=== PATIENT | female | born 1965 | race Asian ===

== ENCOUNTER 2017-03-26 07:36 | Day surgery (SDC) | payer OTHER ==
[~2017-03-26] VITALS: Ht 149.9 cm; Wt 78.5 kg
[2017-03-26] VITALS (8 sets, daily range): BP systolic 125–149; BP diastolic 92–100
[2017-03-26] MEDS ORDERED: LR 1000ml 1,000 ML IVLG SCH ×2 (07:58→09:18)
[2017-03-26] MEDS ORDERED: NAPROXEN250 M1 PO (08:47)
[2017-03-26] MEDS ORDERED: Propofol 10mg/ml 20ml IV ONE (09:00)
[2017-03-26] MEDS ORDERED: LR 1000ml ONE (09:00)
--- NOTE | 2017-03-26 09:01 | Short Stay Surgery H&P ---
History of Present Illness History of Present Illness Chief Complaint Abdominal pains/GERDS. HPI Barb Mckeon is a 51 year old female who was admitted on for GERD/abdominal pains. Patient History Allergies: Coded Allergies: PEACH (Verified Allergy, Severe, 03/26/17) SKIN RASH López (Verified Allergy, Intermediate, 03/26/17) SKIN RASH LATEX (Verified Allergy, Unknown, 03/26/17) DOES NOT KNOW REACTION PAST MEDICAL HISTORY: Past Surgeries: Social History: Medication History Scheduled Naproxen (Naproxen), 150 MG PO NEEDED, (Reported) Review of Systems Cardiovascular: Reports: no symptoms Respiratory: Reports: no symptoms Skeletal: Reports: no symptoms Gastrointestinal: Reports: gastro esophageal reflux disease Genitourinary: Reports: no symptoms Neurologic: Reports: no symptoms Endocrine: Reports: no symptoms Hematologic: Reports: no symptoms Physical Exam Vital Signs Last Vital Signs Date Time Temp Pulse Resp B/P Pulse Ox O2 Delivery O2 Flow Rate FiO2 03/26/17 08:49 97.7 79 20 134/94 97 Room Air Skin: normal HENT: normal Heart: normal Lungs: normal Abdomen: abnormal Extremities: normal Genitourinary: normal Plan Plan of Care Upper GI endoscopy. Preop Interventions None. Summary of Findings See the reports. Final Diagnosis: Attestation Are the patient's medical conditions optimized for surgery? Attestation Response: yes RONALD LITTLE March 26, 2017 09:01
--- NOTE | 2017-03-26 09:01 | Pre-Procedure Note/Attestation ---
Pre-Procedure Note/Attestation Complete Prior to Procedure Planned Procedure: left Procedure Narrative: The endoscopic examination of the upper GI tract. Indications for Procedure Pre-Operative Diagnosis: R/O Peptic ulcer/Gastritis. Attestation I attest that I discussed the nature of the procedure; its benefits; risks and complications; and alternatives (and the risks and benefits of such alternatives ), prior to the procedure, with the patient (or the patient's legal administrative representative). I attest that, if there was a reasonable possibility of needing a blood transfusion, the patient (or the patient's legal administrative representative) was given the [facility] standardized written summary, pursuant to the [place] Blood Safety Act ([place] Health and Safety Code # 1645, as amended). I attest that I re-evaluated the patient just prior to the surgery and that there has been no change in the patient's H&P, except as documented below: ANABEL,SAID March 26, 2017 09:01
--- NOTE | 2017-03-26 09:11 | Endoscopy Procedure Note ---
Endoscopy Procedure Note Indication for Procedure: Abdominal pains/GERDs. Procedures Performed: EGD - Small sliding hiatal hernia and minimal gastritis of the antrum/prepyloric area (antritis) that was biopsied; otherwise normal upper GI endoscopy. Specimen: yes Pt Tolerated Procedure Well: Yes Estimated Blood Loss: none Anesthesiologist: Dr. Marie. Anesthesia: moderate sedation Medication Given: see anesthesia record Implant(s) used?: No 50 yrs or older w/o bx or poly: Not Applicable 10yrs. F/U not recommended: Not Applicable If not recommended, why?: Med reason:<3 yrs.: System Reason:<3 yrs.: RONALD LITTLE March 26, 2017 09:11
--- NOTE | 2017-03-26 09:12 | Discharge Instructions ---
Discharge Instructions Discharge Instructions Follow up with: Visit the doctor after two weeks For Congestive Heart Failure Reminder Report to your physician any weight gain of 5 pounds or more in one week. RONALD LITTLE March 26, 2017 09:12
--- NOTE | 2017-03-26 09:17 | Anethesia Preoperative Eval ---
Anesthesia Pre-op PMH/ROS General Date of Evaluation: March 26, 2017 Time of Evaluation: 09:01 Anesthesiologist: michael ASA Score: ASA 2 Mallampati Score Class I : Soft palate, uvula, fauces, pillars visible Class II: Soft palate, uvula, fauces visible Class III: Soft palate, base of uvula visible Class IV: Only hard plate visible Mallampati Classification: Class II Surgeon: carisa Diagnosis: GERD Surgical Procedure: egd Anesthesia History: none Allergies: Coded Allergies: PEACH (Verified Allergy, Severe, 03/26/17) SKIN RASH López (Verified Allergy, Intermediate, 03/26/17) SKIN RASH LATEX (Verified Allergy, Unknown, 03/26/17) DOES NOT KNOW REACTION Past Medical History Gastrointestinal/Genitourinary: Reports: GERD, other - s/p choley Musculoskeletal/Integumentary: Reports: OA Anesthesia Pre-op Phys. Exam Physician Exam Last Vital Signs Date Time Temp Pulse Resp B/P Pulse Ox O2 Delivery O2 Flow Rate FiO2 03/26/17 08:49 97.7 79 20 134/94 97 Room Air Airway Exam Mallampati Score: Class II Teeth: intact Anesthesia Pre-op A/P Risk Assessment & Plan Plan: propofol Status Change Before Surgery: Jamal Munoz MD March 26, 2017 09:17
--- NOTE | 2017-03-26 09:18 | 48 Hour Post Anesthesia Eval ---
Post Anesthesia Evaluation Date of Evaluation: March 26, 2017 Time of Evaluation: 10:10 Blood Pressure Systolic: 144 0: 95 Pulse Rate: 77 Respiratory Rate: 18 Temperature (Fahrenheit): 97.8 O2 Sat by Pulse Oximetry: 96 Airway: patent Nausea: No Vomiting: No Pain Intensity: 0 Hydration Status: adequate Cardiopulmonary Status: stable Mental Status/LOC: patient returned to baseline Follow-up Care/Observations: mn/a Post-Anesthesia Complications: tolerated well Follow-up care needed: ready to discharge Jamal De Los Santos MD March 26, 2017 09:18
--- NOTE | 2017-03-26 09:18 | Immediate Post-Op Evaluation ---
Immediate Post-Op Evalulation Immediate Post-Op Evalulation Date of Evaluation: March 26, 2017 Time of Evaluation: 09:31 IV Fluids: 300 Blood Pressure Systolic: 125 Blood Pressure Diastolic: 125 Pulse Rate: 92 Respiratory Rate: 20 O2 Sat by Pulse Oximetry: 100 Temperature (Fahrenheit): 97 Pain Score (1-10): 0 Nausea: No Vomiting: No Complications none Patient Status: awake, patent, none Hydration Status: adequate Jamal De Los Santos MD March 26, 2017 09:18
--- NOTE | 2017-03-26 18:46 | Operative Note - Dictated ---
DATE OF OPERATION: 03/26/2017 PROCEDURE: Esophagogastroduodenoscopy with biopsy. REFERRING PHYSICIAN: Lc Tapia M.D. PREOPERATIVE DIAGNOSES: 1. Abdominal pain. 2. History of gastroesophageal reflux. 3. Rule out peptic ulcer disease, gastritis. POSTOPERATIVE DIAGNOSES: 1. Small sliding hiatal hernia. 2. Mild inflammatory process seen in the antrum consistent with antritis. Biopsy was taken from prepyloric area, otherwise normal study. MEDICATION USED: Per Dr. Jamal De Los Santos, anesthesiologist. INSTRUMENT: GIF Olympus upper gastrointestinal video endoscope. DESCRIPTION OF PROCEDURE: The patient after in the arriving endoscopy unit was told about risks and benefits of the procedure, which she accepted and signed the informed consent. She was then put on the left lateral decubitus position. After adequate IV sedation, scope was gently passed through the cricopharyngeal area, was lodged into the upper esophagus, and gradually advanced towards gastroesophageal junction. The entire length of the esophagus looked normal. No evidence of varices, inflammatory process, ulceration, stricture, etc. was found. GE junction also looked normal without any evidence of Bull's mucosa, however there was a small sliding hiatal hernia of no great significance at this point. The scope was then guided into the stomach. Gastric cavity was distended. Gastric fold came into view, which revealed basically normal lining and there was no erythema in the fundus and the body. However, upon reaching towards the antrum and prepyloric area, there was linear erythematous mucosa consistent with mild antritis/gastritis. Couple of biopsies from this area were obtained and subsequently scope was passed through the pylorus. First and second portion of duodenum were found to be completely normal. At this time, a retroflexion maneuver was applied. The area of the fundus of the stomach was examined in a closer fashion, which revealed normal findings. Finally, scope was pulled out. The procedure was terminated. The patient tolerated the procedure well and left the endoscopy room in good condition. Said Iker Farmer DR: Emery JOB#: [id number] CC: ORI
--- NOTE | 2017-03-26 19:01 | Pre-op HX & Phy Repo 2 SIG ---
DATE OF ADMISSION: 03/26/2017 REFERRING PHYSICIAN: This patient was referred by Dr. Lc Tapia. HISTORY OF PRESENT ILLNESS: The applicant is a 51-year-old female, who is being seen prior to undergoing the procedure of upper GI endoscopy for which she has been scheduled to receive for evaluation of her GI symptoms that she had suffered subsequent to work injury. The applicant patient complains of pain over the upper part of the abdomen associated with heartburn. She reports that this pain sometimes become moderate to severe. There has been no relationship with the bowel movements and abdominal pain. The patient has been treated with variety of medications in the past including H2 blockers that she has been taking in the form of ranitidine along with other medications. She also reported that she has gained subsequent amount of weight and mostly 20 pounds. She denies any history of major GI bleeding except occasionally seen minimal amount of blood in the stool, which is not significant possibly related to underlying hemorrhoids. As I mentioned, the applicant was injured at job site and subsequently was started on nonsteroidal anti-inflammatory agents such as ibuprofen and similar compounds, after which she started to experience GI symptoms. 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 She had an encounter with the students and had been injured as she fell down and tripped over and injured her left hand and knees. Subsequently, she was seen by a physician and was treated receiving medical treatment and medications including naproxen that she is still taking. PAST MEDICAL HISTORY: Nonsignificant except possibly elevated uric acid. PAST SURGICAL HISTORY: Left knee operations and left wrist operation with cholecystectomy as well. PRESENT MEDICATIONS: Naproxen, bupropion and Zantac. HABITS: The applicant denies drinking alcohol or smoking cigarettes. REVIEW OF SYSTEMS: Basically in history of present illness, however, it has to be mentioned that the patient has had history of severe anxiety. PHYSICAL EXAMINATION: GENERAL: The patient is alert and well-oriented female, does not seem to be in acute distress. She looks overweight and obese. VITAL SIGNS: All the vital signs are stable. HEENT: Normocephalic. Pupils are equal in size and reactive to light and accommodation. No jaundice. Buccal cavity, tongue midline, well hydrated. No ulcers. NECK: Supple. No JVD, thyromegaly, or adenopathy. CHEST: Clear to auscultation and percussion. No rales or rhonchi. HEART: S1 and S2 normal. Regular rhythm. No gallops or murmur. ABDOMEN: Soft, but obese. There are areas of tenderness over the epigastric area. There is no hepatosplenomegaly. Bowel sounds are present. No masses noted. EXTREMITIES: Within normal limits. No pretibial edema, cyanosis, or clubbing. CENTRAL NERVOUS SYSTEM: Grossly normal. PRELIMINARY PREOPERATIVE IMPRESSION: Epigastric pain of uncertain etiology, rule out gastroesophageal acid reflux, aggravated by side effects of medications, rule out nonsteroidal anti-inflammatory drug-induced gastropathy, peptic ulcer disease, esophagitis, gastritis. RECOMMENDATION: The applicant seems to be stable at this time to undergo the procedure for upper GI endoscopy for which she has been scheduled. She understands the risks and benefits and will sign the consent. Said Iker Farmer DR: ODETTE JOB#: [id number] CC:
== END 2017-03-26 11:20 | disposition home or self-care (01) ==
LOC: GAS 07:36
DX: K29.70 Gastritis, unspecified, without bleeding (principal); K44.9 Diaphragmatic hernia without obstruction or gangrene; K21.9 Gastro-esophageal reflux disease without esophagitis; F41.9 Anxiety disorder, unspecified; M19.90 Unspecified osteoarthritis, unspecified site; Z79.1 Long term (current) use of non-steroidal anti-inflammatories (NSAID); Z79.899 Other long term (current) drug therapy; Z91.040 Latex allergy status; Z91.018 Allergy to other foods; Z90.49 Acquired absence of other specified parts of digestive tract
CPT/HCPCS: 43239; J2704; J7120; 94003; 94150